=== PATIENT | female | born 1950 | race Two or more races ===

== ENCOUNTER 2017-08-31 04:23 | Inpatient (IN) | payer MEDICARE, OTHER ==
[~2017-08-31] VITALS: Ht 160 cm; Wt 71.7 kg
[2017-08-31 06:05] VITALS: BP 119/75
--- NOTE | 2017-08-31 06:05 | NUR ---
GPS-RN ADMITTED A 67-Y/O FEMALE, ADMITTED FROM [facility]. PATIENT ADMITTED ON 5150/DTS, PER HOLD PATIENT TOOK PILLS TO END HER LIFE AND JUST DON'T WANT TO LIVE, SHE FEELS SO LONELY AND HAVE NOTHING TO LIVE FOR. UPON FACE TO FACE ASSESSMENT, PATIENT APPEARS TO BE ALERT, ORIENTED X3, CALM, COOPERATIVE, WITH DEPRESSED MOOD. NO ACUTE DISTRESS NOTED. CONTINENT OF BOWEL AND BLADDER. NO C/O PAIN OR DISCOMFORT AT THIS TIME. DENIES ANY SI/HI/AVH AT THIS TIME. BELONGINGS INVENTORIED AND CHECKED FOR CONTRABAND. REVIEWED PATIENT'S RIGHTS AND SHE VERBALIZED UNDERSTANDING. PATIENT IS UNDER THE PSYCHIATRIC CARE OF DR. PIEDRA, ORDERS OBTAINED, AND UNDER THE MEDICAL CARE OF YUE STEIN, NOTIFIED OF ADMISSION AND MED RECON NEEDS TO BE DONE. SKIN ASSESSMENT DONE. MRSA SCREENING DONE. BED LOCKED AND PLACED IN LOWEST POSITION. ROOM SAFETY CHECKED. FALL PREVENTION PROGRAM MAINTAINED. WILL CONTINUE TO MONITOR Q15MIN ROUNDS FOR SAFETY AND BEHAVIOR. LEFT VOICE MESSAGE TO ASH ROSALES. WILL ENDORSE TO DAY SHIFT NURSE FOR THE CONTINUATION OF ADMISSION PROCESS.
[2017-08-31] MEDS ORDERED: MAG HYDROX/AL HYDROX/SIMETH 30 ML UDC PO PRN (06:30)
[2017-08-31] MEDS ORDERED: MAGNESIUM HYDROXIDE 30 ML UDC PO PRN (06:30)
[2017-08-31] MEDS ORDERED: LORAZEPAM 0.5 MG TABLET PO PRN (06:30)
[2017-08-31] MEDS ORDERED: SERT100T PO (06:40)
[2017-08-31] MEDS ORDERED: CHOL100040 PO (06:41)
[2017-08-31] MEDS ORDERED: ALPR0.5T PO (06:41)
--- NOTE | 2017-08-31 07:25 | NUR ---
GPS-CHATO ROSALES CALLED BACK AND NOTIFIED OF PATIENT ADMISSION.
[2017-08-31 08:00] VITALS: BP 114/60
[2017-08-31 16:00] VITALS: BP 107/67
[2017-08-31] MEDS ORDERED: VENLAFAXINE XR 75 MG CAP.SR.24H PO SCH (18:30)
--- NOTE | 2017-08-31 19:14 | NUR ---
GPS/RN-NOTES UNABLE TO CUT EFFEXOR XR 37.5MG SHAYAN ( PHARMACIES) AWARE AND STATED" RETURN MEDICATION AND WILL CHANGE".
[2017-08-31 20:00] VITALS: BP 136/67
[2017-08-31] MEDS: VENLAFAXINE XR 37.5 MG CAP.SR.24H PO SCH (21:09)
[2017-08-31] MEDS: TRAZODONE 50 MG TABLET PO SCH (21:44)
[2017-08-31] MEDS: TEMAZEPAM 7.5 MG CAPSULE PO PRN (21:44)
[2017-09-01 07:32] LABS: BASOPHILS % (AUTO) 0.2 % (0.0-2.0); HEMATOCRIT 38 % (33-45); HEMOGLOBIN 12.8 g/dL (11.5-14.8); LYMPHOCYTES # (AUTO) 1.2 /CMM (0.8-4.8); LYMPHOCYTES % (AUTO) 11.2 % (20.0-44.0); MEAN CORPUSCULAR HEMOGLOBIN 30 PG (26.0-33.0); MEAN CORPUSCULAR HGB CONC 34 g/dl (31.0-36.0); MEAN CORPUSCULAR VOLUME 88 fL (82-100); MONOCYTES # (AUTO) 0.5 /CMM (0.1-1.30); MONOCYTES % (AUTO) 5.2 % (2.0-12.0); NEUTROPHILS # (AUTO) 8.6 /CMM (1.8-8.9); NEUTROPHILS % (AUTO) 82.4 % (43.0-81.0); PLATELET COUNT (AUTO) 185 /CMM (150-450); RDW COEFFICIENT OF VARIATION 13.2 (11.5-15.0); RED BLOOD CELL COUNT(AUTO) 4.33 MIL/uL (4.0-5.2); WHITE BLOOD COUNT (AUTO) 10.5 K/uL (4.3-11.0)
[2017-09-01 07:49] LABS: ALBUMIN 3.2 g/dL (3.4-5.0); BILIRUBIN,TOTAL 0.3 mg/dL (0.2-1.0); CALCIUM, SERUM 7.9 mg/dL (8.5-10.1); CREATININE 0.8 mg/dL (0.6-1.3); POTASSIUM 3.6 mmol/L (3.5-5.1); TOTAL PROTEIN, SERUM 6.3 g/dL (6.4-8.2)
[2017-09-01 08:00] VITALS: BP 111/72
[2017-09-01] MEDS ORDERED: CHOLECALCIFEROL 1,000 UNIT TABLET (VIT D3) PO SCH (09:00)
[2017-09-01] MEDS: CHOLECALCIFEROL 1,000 UNIT TABLET (VIT D3) PO SCH (09:16)
[2017-09-01] MEDS: VENLAFAXINE XR 37.5 MG CAP.SR.24H PO SCH ×2 (09:17→16:31)
--- NOTE | 2017-09-01 11:25 | NUR ---
TAMMY faxed a clinical review to the pt's insurance, [employer] (Attn: Merline Bryan) to fax number ([phone]).
--- NOTE | 2017-09-01 12:27 | NUR ---
Initial Discharge Plan: Pt currently resides at [address] [place] [address] ([phone]). Per pt, she would like to return here upon discharge. SW will work with the pt and the MD regarding appropriate discharge planning. SW will form a safe and proper discharge.
--- NOTE | 2017-09-01 12:28 | NUR ---
TAMMY called the pt's , Roman Davila ([phone]), and left a message on his voicemail.
[2017-09-01 15:40] LABS: APPEARANCE,URINE CLOUDY (CLEAR); BILIRUBIN,URINE NEGATIVE (NEGATIVE); BLOOD, URINE 1+ Ery/uL (NEGATIVE); COLOR,URINE YELLOW (YELLOW); KETONES,URINE NEGATIVE (NEGATIVE); LEUKOCYTE ESTERASE ,URINE 3+ (NEGATIVE); NITRITE, URINE NEGATIVE (NEGATIVE); PROTEIN,URINE NEGATIVE (NEGATIVE); UGLUCOSE NEGATIVE (NEGATIVE); UROBILINOGEN,URINE 0.2 EU/dL (0.2)
[2017-09-01 16:00] VITALS: BP 121/68
[2017-09-01 16:00] LABS: BACTERIA,URINE 3+ /HPF (None Seen); SQUAMOUS EPITHELIAL CELL,UR Few /HPF (None Seen); WBC,URINE 21-50 /HPF (0-3)
--- NOTE | 2017-09-01 16:23 | NUR ---
GPS RN NOTE: T.O. ORDER FROM DR BARTON START MACROBID 100 MG PO Q 12HR, ORDER PLACED AND CARED OUT.
[2017-09-01 20:00] VITALS: BP 144/81
[2017-09-01] MEDS: TRAZODONE 50 MG TABLET PO SCH (21:20)
[2017-09-01] MEDS: NITROFURANTOIN/NITROFURAN MAC 100 MG CAPSULE PO SCH (21:20)
[2017-09-01] MEDS: TEMAZEPAM 7.5 MG CAPSULE PO PRN (21:20)
[2017-09-02 08:00] VITALS: BP 119/64
[2017-09-02] MEDS: VENLAFAXINE XR 37.5 MG CAP.SR.24H PO SCH ×2 (09:01→16:20)
[2017-09-02] MEDS: NITROFURANTOIN/NITROFURAN MAC 100 MG CAPSULE PO SCH ×2 (09:01→21:45)
[2017-09-02] MEDS: CHOLECALCIFEROL 1,000 UNIT TABLET (VIT D3) PO SCH (09:04)
[2017-09-02 16:00] VITALS: BP 138/74
[2017-09-02 20:00] VITALS: BP 125/80
[2017-09-02] MEDS: TRAZODONE 50 MG TABLET PO SCH (21:45)
[2017-09-02] MEDS: TEMAZEPAM 7.5 MG CAPSULE PO PRN (21:45)
[2017-09-03 08:00] VITALS: BP 153/74
[2017-09-03] MEDS: VENLAFAXINE XR 37.5 MG CAP.SR.24H PO SCH ×2 (09:59→17:16)
[2017-09-03] MEDS: CHOLECALCIFEROL 1,000 UNIT TABLET (VIT D3) PO SCH (10:01)
[2017-09-03] MEDS: NITROFURANTOIN/NITROFURAN MAC 100 MG CAPSULE PO SCH ×2 (10:01→21:03)
[2017-09-03 16:00] VITALS: BP 139/70
[2017-09-03 20:21] VITALS: BP 147/78
[2017-09-03] MEDS ORDERED: TRAZODONE 50 MG TABLET PO SCH (22:00)
[2017-09-03] MEDS: TEMAZEPAM 7.5 MG CAPSULE PO PRN (22:56)
[2017-09-04 08:00] VITALS: BP 138/71
--- NOTE | 2017-09-04 08:41 | NUR ---
TAMMY called the pt's daughter, Melia ([phone]), and updated her about her mother and informed her about the hold process.
[2017-09-04] MEDS: NITROFURANTOIN/NITROFURAN MAC 100 MG CAPSULE PO SCH ×2 (09:03→21:22)
[2017-09-04] MEDS: CHOLECALCIFEROL 1,000 UNIT TABLET (VIT D3) PO SCH (09:03)
[2017-09-04] MEDS: VENLAFAXINE XR 37.5 MG CAP.SR.24H PO SCH ×2 (09:03→16:44)
--- NOTE | 2017-09-04 12:08 | NUR ---
TAMMY called Charito ([phone]) from [facility] and left a message on her voicemail stating that the pt is still currently in the hospital.
[2017-09-04 16:00] VITALS: BP 133/79
--- NOTE | 2017-09-04 21:00 | NUR ---
GPS OVERFLOW RN NOTE TRANSFER OF CARE FROM GPS. REPORT GIVEN BY MINOO REIS. PT TRANSFERRED AND AMBULATED SAFELY TO ROOM 105, RIGHT IN FRONT OF NURSING STATION. A/O X3 AND ABLE TO VERBALIZE NEEDS. NO ACUTE DISTRESS NOTED. NOTED WITH SLIGHT ANXIETY, BUT PT COOPERATIVE. PT SPOKE WITH FAMILY. NO SI NOTED. CALL LIGHT WITHIN REACH. NOTED WITH STEADY GAIT. WILL MONITOR CLOSELY.
[2017-09-04] MEDS: TRAZODONE 50 MG TABLET PO SCH (21:22)
--- NOTE | 2017-09-05 07:30 | NUR ---
received pt. alert and oriented x4.up and about in room,no distress.
[2017-09-05 08:00] VITALS: BP 119/55
[2017-09-05] MEDS: CHOLECALCIFEROL 1,000 UNIT TABLET (VIT D3) PO SCH (08:52)
[2017-09-05] MEDS: NITROFURANTOIN/NITROFURAN MAC 100 MG CAPSULE PO SCH ×2 (08:53→21:26)
[2017-09-05] MEDS: VENLAFAXINE XR 37.5 MG CAP.SR.24H PO SCH ×2 (09:19→17:13)
[2017-09-05 12:00] VITALS: BP 125/73
[2017-09-05 16:00] VITALS: BP 122/73
--- NOTE | 2017-09-05 16:00 | NUR ---
dr. lynch in to see pt.
--- NOTE | 2017-09-05 16:12 | NUR ---
TAMMY called the pt's daughter, Melia ([phone]), and informed her that the pt is being discharged tomorrow.
--- NOTE | 2017-09-05 17:00 | NUR ---
pt. transferred to eb via w/chair accompanied by rn.belongings with pt.report called to radha on eb.
--- NOTE | 2017-09-05 17:10 | NUR ---
GPS/RN-NOTES PATIENT BACK IN THE UNIT WITH VOLUNTARY STATUS. PATIENT ALERT ORIENTED X4 AMBULATORY WITH STEADY GAIT. NO ACUTE DISTRESS NOTED.PATIENT IN HER ROOM INTERACTING WITH COOPERS. PATIENT DENIES SI/HI AT THIS TIME. WILL CONT. MONITORING Q15 MINS. FOR SAFETY AND BEHAVIOR.
[2017-09-05 17:18] VITALS: BP 123/78
--- NOTE | 2017-09-05 17:54 | NUR ---
1130 dr. nance in to see pt. no changes.
[2017-09-05 21:14] VITALS: BP 138/76
[2017-09-05] MEDS: TRAZODONE 50 MG TABLET PO SCH (21:27)
[2017-09-06 08:00] VITALS: BP 134/76
[2017-09-06] MEDS: CHOLECALCIFEROL 1,000 UNIT TABLET (VIT D3) PO SCH (08:42)
[2017-09-06] MEDS: VENLAFAXINE XR 37.5 MG CAP.SR.24H PO SCH (08:42)
[2017-09-06] MEDS: NITROFURANTOIN/NITROFURAN MAC 100 MG CAPSULE PO SCH (08:42)
--- NOTE | 2017-09-06 10:30 | NUR ---
RN NOTE:PATIENT REFUSED DISCHARGE PICTURES.
--- NOTE | 2017-09-06 10:30 | NUR ---
SANITARY ENGINEER NOTE ;PATIENT ALERT ,ORIENTED X3 ,DENIES SUICIDAL IDEATION ,DENIES HOMICIDAL IDEATION ,DENIES AUDITORY VISUAL HALLUCINATION ,NO C/O PAIN ,V STABLE, AND KERMIT GARCÍA SALES ADMINISTRATION SPECIALIST NOTIFIED OF DISCHARGE PATIENT MEDICALLY CLEARED FOR DISCHARGE BY KERMIT THOMAS SALES ADMINISTRATION SPECIALIST AND DISCHARGED BY PSYCHIATRIST .ALL DISCHARGE INSTRUCTION GIVEN,.PRESCRIPTION GIVE AND EXPLAINED TO PATIENT ABLE TO VERBALIZE UNDERSTANDING .ALL BELONGING RETURNED TO PATIENT ,PATIENT DISCHARGE WITH WITH PRIVATE CAR .
--- NOTE | 2017-09-06 12:20 | NUR ---
Discharge Note: [place] home to [address] [place] [address]; ([phone]). Pt was picked up by her , Roman Davila ([phone]) around 10AM. Pts was agreeable with this discharge plan. Upon discharge the pt appeared to be in a euthymic mood and her affect was normal. Pt stated that she is ready to go home and live my life. Pt denied both homicidal and suicidal ideation as well as visual and auditory hallucinations. Pt will be under the care of psychiatrist, Dr. Fredy Larson, [place] [address] [place] [address]; and spin instructor, Dr. Bonnie Cuevas[place] [address] [place] [address]; .
== END 2017-09-06 10:30 | disposition home or self-care (01) | DRG 885 ==
LOC: GPS 05:55 → GPSOV1 09-04 20:34 → GPS 09-05 16:53
PROVIDERS: ADMIT Psychiatry & Neurology Psychiatry; ATTEND Nurse Practitioner Acute Care
DX: F33.9 Major depressive disorder, recurrent, unspecified (principal); E44.1 Mild protein-calorie malnutrition; N39.0 Urinary tract infection, site not specified; R45.851 Suicidal ideations; B96.20 Unspecified Escherichia coli [E. coli] as the cause of diseases classified elsewhere; E55.9 Vitamin D deficiency, unspecified; E83.51 Hypocalcemia; E88.09 Other disorders of plasma-protein metabolism, not elsewhere classified; F41.0 Panic disorder [episodic paroxysmal anxiety]; Z68.28 Body mass index [BMI] 28.0-28.9, adult; Z91.5 Personal history of self-harm
CPT/HCPCS: 36415; 80053-TC; 80061-TC; 81000-TC; 85025-TC; 87081-TC; 87086-TC; 87186-TC; Z7610